=== PATIENT | male | born 1935 | race Two or more races ===

== ENCOUNTER 2020-04-21 09:22 | Outpatient (CLI) | payer OTHER ==
[~2020-04-21 09:22] MED LIST: AFRIN SPRAY15 ML NS; SYNTHROID50 MCG
== END 2020-04-21 09:27 | disposition home or self-care (01) ==
LOC: TOM 09:22
PROVIDERS: ATTEND Internal Medicine
DX: K56.690 Other partial intestinal obstruction (principal); K56.50 Intestinal adhesions [bands], unspecified as to partial versus complete obstruction